=== PATIENT | male | born 1970 | race Caucasian/White ===

== ENCOUNTER 2016-08-26 09:31 | Emergency (ER) | payer SELFPAY ==
--- NOTE | 2016-08-26 09:54 | Emergency Department Record ---
History of Present Illness - General Chief Complaint: Laceration(s) Stated Complaint: LEFT PINKIE LAC Time Seen by Provider: 08/26/16 09:40 Source: Patient Mode of Arrival: Ambulatory Limitations: No limitations - History of Present Illness Initial Commments: 46 yo male presents with a left 5th finger laceration at work. This occurred on a sharp piece of metal. No loss of function, No numbness or tingling. No obvious FB or metal. He is right handed. Last tetanus was 2 years ago. Onset/Timin -: Minutes(s) Extremity Location: Left: Hand Place: Work Context: Accidental Associated Symptoms: None Treatments Prior to Arrival: Bandage - Caity Coma Scale Eye Response: (4) Open spontaneously Motor Response: (6) Obeys commands Verbal Response: (5) Oriented Daykin Total: 15 - Related Data Hx Tetanus Toxoid Vaccination: Yes Year of Tetanus Vaccination: 2014 Patient Tetanus UTD (within 5 yrs): Yes Home Medications Medication Instructions Recorded Confirmed Last Taken No Home Med [NO HOME MEDS] 10/24/14 08/26/16 Unknown Allergies Allergy/AdvReac Type Severity Reaction Status Date / Time No Known Drug Allergies Allergy Verified 10/24/14 10:35 Travel Screening - Travel/Exposure Within Last 30 Days Have you traveled within the last 30 days?: No Review of Systems Constitutional: Denies: Chills, Fever Eyes: Denies: Eye discharge ENT: Denies: Congestion, Throat pain Respiratory: Denies: Cough, Dyspnea Cardiovascular: Denies: Chest pain, Syncope Endocrine: Denies: Fatigue Gastrointestinal: Denies: Abdominal pain, Diarrhea, Nausea, Vomiting Genitourinary: Denies: Dysuria Musculoskeletal: Denies: Arthralgia, Joint swelling, Myalgia Skin: Reports: Other (laceration). Denies: Bruising, Change in color Neurological: Denies: Headache Psychiatric: Denies: Anxiety Hematological/Lymphatic: Denies: Blood Clots, Easy bleeding, Easy bruising, Swollen glands Past Medical History - SOCIAL HISTORY Smoking Status: Never smoker Alcohol Use: None Drug Use: None - RESPIRATORY Hx Respiratory Disorders: No - CARDIOVASCULAR Hx Cardio Disorders: No Hx Hypertension: Yes (borderline) - NEURO Hx Neuro Disorders: No - GI Hx GI Disorders: No - Hx Genitourinary Disorders: No - ENDOCRINE Hx Endocrine Disorders: No - MUSCULOSKELETAL Hx Musculoskeletal Disorders: No - PSYCH Hx Psych Problems: No - HEMATOLOGY/ONCOLOGY Hx Hematology/Oncology Disorders: No Family Medical History Any Significant Family History?: Yes Hx Alcohol Use: Father, Grandparents Hx Cancer: Father Physical Exam - General General Appearance: Alert, Oriented x3, Cooperative, No acute distress Limitations: No limitations - Head Head exam: Normal inspection - Eye Eye exam: Normal appearance, PERRL. negative: Conjunctival injection, Periorbital swelling - ENT ENT exam: Normal exam Ear exam: Normal external inspection Nasal Exam: Normal inspection - Neck Neck exam: Normal inspection - Cardiovascular Peripheral Pulses: 2+: Radial (L) - Rectal Rectal exam: Deferred - exam: Deferred - Extremities Extremities exam: Full ROM, Normal capillary refill, Tenderness, Other (Full ROM of motion of flexion of the 5th digit, palmar side, 1cm in between the MCP and IP). negative: Normal inspection, Joint swelling Image of Hand: 1 - 1.5cm lac, superficial, no FB, no tendon seen, no tendon function loss, sensation intact - Back Back exam: Reports: Full ROM - Neurological Neurological exam: Alert, Normal gait, Oriented X3, Reflexes normal - Psychiatric Psychiatric exam: Normal affect, Normal mood - Skin Skin exam: Dry, Intact, Normal color, Warm Course Vital Signs 08/26/16 09:35 Temperature 98.5 F Pulse Rate 69 Respiratory 20 Rate Blood Pressure 143/92 Pulse Ox 96 - Reevaluation(s) Reevaluation #1: Digital Block Betadine prep Lidocaine without epi 4cc XR ordered to Rule out FB 08/26/16 09:48 Reevaluation #2: Procedure 1.5cm lac Superficial Betadine prep Bloodless field with tourniquet Taken through a ROM No visible tendon or tendon injury No FB Ethilon Suture 4-0 #5 08/26/16 10:22 - Consultations Consultation #1: WE discussed signs and symptoms of infections, signs of flexor tendon injury, and reasons for immediate return. I do not see the tendon given the lac is superficial and his function is normal ROM but we discussed that not all injuries can be seen so the signs and symptoms were discussed. Disposition Disposition: Discharge Clinical Impression: Finger laceration Qualifiers: Encounter type: initial encounter Qualified Code(s): S61.219A - Laceration without foreign body of unspecified finger without damage to nail, initial encounter Disposition: Home, Self-Care Condition: (1) Good Instructions: Laceration (ED) Additional Instructions: Return in 7 days for suture removal Return sooner if red, warm, pain, or changes in movement of the finger Forms: Patient Portal Access Time of Disposition: 10:25
[2016-08-26 11:19] LABS: AMPHETAMINE SCREEN URINE NOT DETECTED; BARBITURATE SCREEN URINE NOT DETECTED; BENZODIAZEPINE SCREEN URINE NOT DETECTED; COCAINE SCREEN URINE NOT DETECTED; METHADONE SCREEN URINE NOT DETECTED; METHAMPHETAMINE SCREEN NOT DETECTED; OPIATE SCREEN URINE NOT DETECTED; OXYCODONE SCREEN URINE NOT DETECTED; PHENCYCLIDINE SCREEN URINE NOT DETECTED; PROPOXYPHENE SCREEN URINE NOT DETECTED; THC SCREEN URINE NOT DETECTED; TRICYCLIC ANTIDEPRESSANT SCRN NOT DETECTED
--- NOTE | 2016-08-31 09:59 | RADIOLOGY REPORT ---
EXAM: LEFT FIFTH FINGER HISTORY: LACERATION. TECHNIQUE: Three views of the left fifth finger were obtained. Comparison: None. Encounter: Initial. FINDINGS: Overlying soft tissue changes. No soft tissue gas. No radiopaque foreign body. Negative for fracture. IMPRESSION: NO ACUTE OSSEOUS ABNORMALITY. NEGATIVE FOR RADIOPAQUE FOREIGN BODY. JOB NUMBER: [id number] MTDD
== END 2016-08-26 10:45 | disposition home or self-care (01) ==
LOC: ER 09:31
DX: S61.217A Laceration without foreign body of left little finger without damage to nail, initial encounter (principal); W45.8XXA Other foreign body or object entering through skin, initial encounter; Y92.63 Factory as the place of occurrence of the external cause; Y99.0 Civilian activity done for income or pay
CPT/HCPCS: 12001; 73140; 80305; 99283; 99284

== ENCOUNTER 2017-07-06 09:23 | Day surgery (SDC) | payer BC ==
[2017-07-06] MEDS ORDERED: PROPOFOL 10 MG/ML VIAL IV ONE (09:24)
[2017-07-06] MEDS ORDERED: LIDOCAINE 2% MDV (20MG/ML) 20ML VIAL IV ONE (09:24)
--- NOTE | 2017-07-07 12:40 | Operative Note ---
DATE OF SURGERY: 07/06/2017 OPERATION: COLONOSCOPY with cold forceps polypectomy. PREOPERATIVE DIAGNOSIS: Family history of colon cancer, personal history of adenomatous polyp. POSTOPERATIVE DIAGNOSIS: Rectal polyp, status post cold forceps removal. PREPARATION QUALITY: Good. ESTIMATED BLOOD LOSS: Minimum. SPECIMENS: Rectal polyp. COMPLICATIONS: None apparent. PROCEDURE: After informed consent was obtained from the patient, he was placed in the left lateral decubitus position in the endoscopy suite, sedated and monitored by the department of anesthesia. Digital rectal exam was unremarkable. A well-lubricated [id number] colonoscope was inserted into the rectum and advanced to the cecum. Preparation quality was good. The cecum, ileocecal valve, appendiceal orifice, ascending colon, transverse colon, descending colon, and sigmoid colon were free of inflammatory changes, mass lesions, or polyps. J-turn views of the anorectum were unremarkable. Forward views revealed a diminutive distal rectal polyp which was identified and removed with a cold forceps. Minimal bleeding was noted. The rectal ampulla was deflated, and the endoscope was removed. RECOMMENDATIONS: I would suggest the patient resume his medications and diet. He should undergo repeat exam in 5 years. As always, thank you for allowing me to participate in the healthcare of your patients. CC: Romy PAZ
== END 2017-07-06 11:09 | disposition home or self-care (01) ==
LOC: HOP 09:23
PROVIDERS: ATTEND Internal Medicine Gastroenterology
DX: Z09 Encounter for follow-up examination after completed treatment for conditions other than malignant neoplasm (principal); Z86.010 Personal history of colon polyps; Z80.0 Family history of malignant neoplasm of digestive organs; K62.1 Rectal polyp; I10 Essential (primary) hypertension